=== PATIENT | female | born 1990 | race Caucasian/White ===

== ENCOUNTER 2019-10-27 16:45 | Inpatient (IN) | payer BC ==
[2019-10-27] MEDS ORDERED: Dinoprostone* 10 MG VAG.SUPP VAGINAL ONE (17:33)
[2019-10-27] MEDS ORDERED: Lactated Ringers 1000 ML Bag* 1,000 ML IV ONE (17:33)
[2019-10-27] MEDS ORDERED: Buffered Lidocaine 1% SYRIN* 1 ML/SYRINGE INTRADERM ONE (17:33)
[2019-10-27] MEDS ORDERED: Lactated Ringers 1000 ML Bag* 1,000 ML IV SCH (18:00)
--- NOTE | 2019-10-27 18:52 | HP ---
General Information - Reason for Visit Iugr. Pt sent from Dr Antoine's office for ripening / induction of labor for iugr with elevated s/d ratios and oligohydramnios at 34 + weeks - General Information Maternal Age: 29 Grav: 2 Para: 1 SAB: 0 IEA: 0 Estimated Due Date: 12/03/19 Determined By: LMP Maternal Blood Type and Rh: O Positive - Results this Serology/RPR Result: Non-Reactive Rubella Result: Immune HBsAg Result: Negative HIV Result: Negative Past Medical History Delivery History: See Records Pertinent Past Medical History: See Records Pertinent Past Surgical History: See Records Pertinent Family History: See Records - Antepartal Records Antepartal Records: Reviewed, Complicated by: - growth restriction / elevated s'd ratios and oligohydramnios Review of Systems Constitutional: Comfortable CV Complaint: No Respiratory: Shortness of Breath: No Gastrointestinal: No Nausea/Vomiting Musculoskeletal: No Complaint Neurological: Headache - mild Movement: Normal Exam Allergies/Adverse Reactions: Allergies No Known Allergies Allergy (Verified 09/21/19 11:27) - Measurements Height: 5 ft 6 in Weight: 168 lb Weight in lbs: [id number] Body Mass Index (BMI): 27.1 Pre- Weight: 150 lb Weight Gained This : 18 lbs and 0 ozs - Exam Breast: Breast Exam Deferred Extremities: No Edema Heart: Normal Rhythm/Heart Sounds HEENT: No Significant Findings Lungs: Clear Bilaterally Rectal: Rectal Exam Deferred Reflexes: DTR 2+ Targeted Exam Findings Cervical Exam: Closed Effacement: 50% Station: -2 Presenting Part: Vertex Membrane Status: Intact EFM Findings - External Monitor Findings External Monitor Findings: Accelerations Present, No Pattern of Variable or Late Decelerations, Variability Moderate, Baseline Stable Contractions: None Assessment/Plan - Assessment Iugr with worsening oligohydramnios and dopplers per Dr antoine . he recommends ripening and induction of labor . - Obstetrical Risk Factors Obstetrical Risk Factors: GBS Unknown, IUGR - s/d ratio 3.0 today . oligohydramnios/ cervidil placed - Plan Plan: Induction, Cervical Ripening
[2019-10-27 19:19] LABS: Urine Benzodiazepine Screen None Detected (None Detect); Urine Opiates Screen None Detected (None Detect)
[2019-10-27] MEDS ORDERED: Acetaminophen TAB* 325 MG PO PRN (20:40)
[2019-10-28] MEDS ORDERED: Oxytocin in LR* 20 UNITS/1,000 ML BAG IVPB ONE (05:38)
[2019-10-28] MEDS ORDERED: Oxytocin in LR* 20 UNITS/1,000 ML BAG IVPB SCH ×2 (06:00→17:00)
[2019-10-28] MEDS ORDERED: Penicillin G Potassium IV* 5,000,000 UNITS in NS 0.9% 100 ML* 100 ML IVPB ONE (06:00)
[2019-10-28 06:03] LABS: ABS Basophils 0.1 10^3/ul (0-0.2); ABS Lymphocytes 2.4 10^3/ul (1.0-4.8); ABS Monocytes 0.9 10^3/ul (0-0.8); ABS Neutrophils 9.1 10^3/ul (1.5-7.7); Eosinophil % 0.1 %; Hematocrit 35 % (35-47); Hemoglobin 11.9 g/dL (12.0-16.0); Lymphocyte % 19.3 %; Mean Corpuscular HGB Conc 34 g/dL (31-36); Mean Corpuscular Hemoglobin 30 pg (27-31); Mean Corpuscular Volume 88 fL (80-97); Mean Platelet Volume 6.9 fL (7.4-10.4); Nucleated Red Blood Cells % 0.1; Platelet Count 249 10^3/uL (150-450); Red Blood Count 3.97 10^6 /uL (3.70-4.87); Red Cell Distribution Width 12 % (10-15); White Blood Count 12.5 10^3/uL (3.5-10.8)
--- NOTE | 2019-10-28 06:16 | PN ---
Progress Note - Progress Note Date of Service: 10/28/19 Note: cervidil removed last night due to hyperstimulation. Fhr reassuring last pm . Ve this am 1-2 cm 75 % . fhr 130 with moderate variability . arom clear fluid . Plan to start oxytocin this am . GBS prophylaxis based on less than 37 week risk factor. Will nee to watch tolerance to labor. Humphrey Luna MD
[2019-10-28 06:24] LABS: Albumin 3.5 g/dL (3.2-5.2); BUN/Creatinine Ratio 13.2 (8-20); Calcium 8.3 mg/dL (8.6-10.3); EGFR Non-African American 136.4 (>60); Globulin 3.5 g/dL (2-4); Potassium 3.5 mmol/L (3.5-5.0); Total Bilirubin 0.3 mg/dL (0.2-1.0)
[2019-10-28] MEDS: Penicillin G Potassium IV* 2,500,000 UNITS in NS 0.9% 100 ML* 100 ML IVPB SCH ×2 (10:00→13:55)
[2019-10-28] MEDS ORDERED: OBEPIDURAL* 250 ML EPIDURAL ONE (10:25)
[2019-10-28] MEDS ORDERED: Sodium Citrate/Citric Acid* 15 ML UDC PO PRN (10:55)
[2019-10-28] MEDS ORDERED: Phenylephrine 40 MCG/ML SYRINGE IV PUSH PRN ×2 (10:55)
[2019-10-28] MEDS ORDERED: Famotidine TAB* 20 MG PO PRN (10:55)
[2019-10-28] MEDS ORDERED: Lactated Ringers 1000 ML Bag* 1,000 ML IV ONE (10:55)
[2019-10-28] MEDS ORDERED: OBEPIDURAL* 250 ML EPIDURAL SCH (11:00)
[2019-10-28] MEDS ORDERED: Lactated Ringers 1000 ML Bag* 1,000 ML IV SCH ×2 (11:00→17:00)
[2019-10-28] MEDS ORDERED: Witch Hazel PAD* JAR TOPICAL PRN (16:20)
[2019-10-28] MEDS ORDERED: Dibucaine 1% 28.35 GM TUBE PR PRN (16:20)
[2019-10-28] MEDS ORDERED: Glycerin ADULT SUPP PR PRN (16:20)
--- NOTE | 2019-10-28 16:39 | PROCNOTE ---
[facility] OB: Delivery Note - Delivery A Date of : 10/28/19 Time of : 15:19 [place] Weight at : 4 lb 11 oz Score 1 Minute: 7 Score 5 Minutes: 8 Gestational Age in Weeks and Days at Delivery: 34 Weeks and 6 Days Delivery Method: Spontaneous Vaginal Labor: Induced Did Patient attempt ?: N/A, No Previous Amniotic Fluid: Clear Estimated Blood Loss: 200 Anesthesia/Analgesia: CEI for Labor - Nursery Level of Nursery: NICU - Perineum Perineal Injury: 1st Degree Perineal Repair: By Delivering Practioner - Events Delivery Events of Note: Pitocin During Labor, Full Course of Antibiotics, Steriods Given for Lung Maturity - Additional Delivery Notes Additional Delivery Notes: Pt underwent induction of labor for IUGR/Oligo with elevated SDR. She progressed into active labor today and received an epidural. She then progressed to fully dilated and pushed for 10min to deliver the in AUBRIE position followed quickly by the shoulders and rest of the body with double compound hands. The baby was placed on mom's abdomen. The cord was milked towards the baby then clamped x2 and cut after 1min. The baby was taken to the warmer under the care of the footwear sales representative. Cord blood was collected. The placenta delivered with gentle cord traction and fundal massage and appeared to be intact. A small first degree laceration was repaired with a [id number] suture of 3-0 vicryl. There was a small gush of blood that stopped with fundal massage which resulted in good hemostasis.
[2019-10-28] MEDS: Ibuprofen TAB* 600 MG PO PRN ×2 (17:17→23:19)
[2019-10-28] MEDS ORDERED: Simethicone TAB* 80 MG TAB.CHEW PO SCH (17:30)
[2019-10-28] MEDS: Acetaminophen TAB* 325 MG PO PRN ×2 (18:42→23:20)
[2019-10-28] MEDS: Docusate CAP* 100 MG PO SCH (21:46)
[2019-10-29] MEDS: Acetaminophen TAB* 325 MG PO PRN ×4 (03:35→23:03)
[2019-10-29 07:39] LABS: ABS Lymphocytes 2.7 10^3/ul (1.0-4.8); ABS Monocytes 0.9 10^3/ul (0-0.8); ABS Neutrophils 9.3 10^3/ul (1.5-7.7); Eosinophil % 0.1 %; Hematocrit 31 % (35-47); Hemoglobin 10.3 g/dL (12.0-16.0); Lymphocyte % 20.6 %; Mean Corpuscular HGB Conc 33 g/dL (31-36); Mean Corpuscular Hemoglobin 29 pg (27-31); Mean Corpuscular Volume 88 fL (80-97); Mean Platelet Volume 6.9 fL (7.4-10.4); Nucleated Red Blood Cells % 0.1; Platelet Count 211 10^3/uL (150-450); Red Blood Count 3.54 10^6 /uL (3.70-4.87); Red Cell Distribution Width 12 % (10-15); White Blood Count 12.9 10^3/uL (3.5-10.8)
[2019-10-29] MEDS: Ibuprofen TAB* 600 MG PO PRN ×3 (08:42→20:59)
[2019-10-29] MEDS: Docusate CAP* 100 MG PO SCH ×3 (08:42→20:59)
[2019-10-29] MEDS ORDERED: Ferrous Gluconate TAB* 324 MG TAB PO SCH (09:00)
[2019-10-30] MEDS: Ibuprofen TAB* 600 MG PO PRN (03:55)
[2019-10-30 07:56] VITALS: BP 116/64
[2019-10-30] MEDS: Acetaminophen TAB* 325 MG PO PRN (08:00)
[2019-10-30] MEDS: Docusate CAP* 100 MG PO SCH (08:00)
== END 2019-10-30 09:25 | disposition home or self-care (01) | DRG 560 ==
LOC: MCHOBOUT 16:45 → MCHOB 17:58
PROVIDERS: ADMIT Obstetrics & Gynecology; ATTEND Obstetrics & Gynecology
PROC: 10E0XZZ Delivery of Products of Conception, External Approach (ICD-10-PCS; principal; 2019-10-28)
PROC: 3E0P7VZ Introduction of Hormone into Female Reproductive, Via Natural or Artificial Opening (ICD-10-PCS; 2019-10-28)
PROC: 4A1HXCZ Monitoring of Products of Conception, Cardiac Rate, External Approach (ICD-10-PCS; 2019-10-28)
PROC: 0HQ9XZZ Repair Perineum Skin, External Approach (ICD-10-PCS; 2019-10-28)
PROC: 10907ZC Drainage of Amniotic Fluid, Therapeutic from Products of Conception, Via Natural or Artificial Opening (ICD-10-PCS; 2019-10-28)
DX: O36.5930 Maternal care for other known or suspected poor fetal growth, third trimester, not applicable or unspecified (principal); O41.03X0 Oligohydramnios, third trimester, not applicable or unspecified; Z37.0 Single live birth; O70.0 First degree perineal laceration during delivery; O32.6XX0 Maternal care for compound presentation, not applicable or unspecified; Z3A.34 34 weeks gestation of pregnancy; Z28.21 Immunization not carried out because of patient refusal
CPT/HCPCS: 36415; 80053; 80307; 85025; 86850; 86900; 86901; 88307; A9270-GY; J2540